=== PATIENT | male | born 2000 | race Caucasian/White ===

== ENCOUNTER 2023-05-22 12:59 | Emergency (ER) | payer MEDICARE ==
[~2023-05-22] VITALS: Ht 170.1 cm; Wt 59.0 kg
[2023-05-22] MEDS ORDERED: BUPROPION XL300 MG PO (13:11)
[2023-05-22] MEDS ORDERED: ATOMOXETINE HCL60 MG PO (13:11)
[2023-05-22] MEDS ORDERED: CYPROHEPTADINE H4 M1 PO (13:12)
[2023-05-22 13:30] LABS: BASO # 0.1 10*3/uL (0.0-0.1); BASO % 0.6 % (0.0-1.0); EOS # 0.2 10*3/uL (0.0-0.4); EOS % 1.9 % (1.0-4.0); LYMPH # 2.4 10*3/uL (1.3-4.4); LYMPH % 28.1 % (27.0-41.0); MEAN CELL VOLUME 88.2 fl (80.0-94.0); MEAN CORPUSCULAR HGB 29.6 pg (27.0-31.0); MEAN CORPUSCULAR HGB CONC 33.6 g/dl (33.0-37.0); MEAN PLATELET VOLUME 8.2 fl (9.6-12.3); MONO # 0.7 10*3/uL (0.1-1.0); MONO % 8.4 % (3.0-9.0); NEUT # 5.2 10*3/uL (2.3-7.9); NEUT % 60.8 % (47.0-73.0); PLATELET COUNT AUTOMATED 345 10*3/uL (130-400); RED BLOOD COUNT 5.33 10*6/uL (4.50-5.90); RED CELL DISTRI WIDTH 12.4 % (0-14.5); WHITE BLOOD COUNT 8.6 10*3/uL (4.8-10.8)
[2023-05-22 13:47] LABS: ALKALINE PHOSPHATASE 54 U/L (46-116); BUN 6 mg/dl (9-23); CHLORIDE 103 mmol/L (98-107); ETHYL ALCOHOL < 3.0 mg/dl (<3); POTASSIUM 4.2 mmol/L (3.4-5.1); SGPT/ALT 68 U/L (5-49)
[2023-05-22] MEDS ORDERED: CYMBALTA60 MG PO (13:48)
[2023-05-22] MEDS ORDERED: PRAZOSIN HCL2 MG PO (13:48)
[2023-05-22] MEDS ORDERED: OLANZAPINE10 MG PO (13:49)
[2023-05-22] MEDS ORDERED: DULCOLAX STOOL100 M1 PO (13:50)
[2023-05-22 14:17] LABS: BILIRUBIN Negative (Negative); BLOOD Negative (Negative); CLARITY Clear (Clear); COLOR Yellow (Yellow); GLUCOSE Negative (Negative); KETONE Negative (Negative); LEUKO ESTERASE Negative (Negative); NITRITE Negative (Negative); PH 7.5 (4.5-8.0); SPECIFIC GRAVITY <= 1.005 (1.001-1.030); UROBILINOGEN 0.2 E.U./dl (0.0-1.0)
[2023-05-22 14:24] LABS: URINE AMPHETAMINES Negative (1000ng/ml); URINE BARBITURATES Negative (200ng/ml); URINE BENZODIAZEPINES Negative (200ng/ml); URINE CANNABINOIDS (THC) Negative (50ng/ml); URINE COCAINE Negative (300ng/ml); URINE METHADONE Negative (300ng/ml); URINE OPIATES Negative (300ng/ml); URINE PHENCYCLIDINE Negative (25ng/ml)
[2023-05-22 14:36] LABS: WBC 0-2 wbc/hpf (0-5)
== END 2023-05-22 14:49 | disposition home or self-care (01) ==
LOC: ED 12:59
PROVIDERS: Physician Assistant Medical
DX: F43.23 Adjustment disorder with mixed anxiety and depressed mood (principal); F32.A Depression, unspecified; F41.9 Anxiety disorder, unspecified; Z79.899 Other long term (current) drug therapy

== ENCOUNTER 2023-08-04 13:08 | Emergency (ER) | payer MEDICARE ==
[~2023-08-04] VITALS: Ht 167.6 cm; Wt 59.0 kg
[~2023-08-04 13:08] MED LIST: ATOMOXETINE HCL60 MG PO; BUPROPION XL300 MG PO; CYMBALTA60 MG PO; CYPROHEPTADINE H4 M1 PO; DULCOLAX STOOL100 M1 PO; OLANZAPINE10 MG PO; PRAZOSIN HCL2 MG PO
[2023-08-04] MEDS ORDERED: Lidocaine Hydrochloride 15 ML UDC PO STA (13:22)
[2023-08-04] MEDS ORDERED: BENZOCAINE 20% 11.9 GM GEL T STA (13:22)
[2023-08-04] MEDS ORDERED: PENICILLIN VK500 MG PO (13:25)
[2023-08-04] MEDS ORDERED: Acetaminophen/Hydrocodone 5 MG/325 MG TABLET PO ONE (13:25)
[2023-08-04] MEDS ORDERED: Ketorolac Tromethamine 60 MG/2 ML VIAL IM ONE (13:25)
[2023-08-04] MEDS ORDERED: NAPROSYN500 MG PO (13:25)
[2023-08-04] MEDS ORDERED: PENICILLIN V POTASSIUM 500 MG TAB PO ONE (13:25)
[2023-08-04] MEDS ORDERED: MINIPRESS2 M1 PO (13:46)
== END 2023-08-04 13:34 | disposition home or self-care (01) ==
LOC: ED 13:08
DX: K04.7 Periapical abscess without sinus (principal)

== ENCOUNTER 2023-10-11 16:13 | Emergency (ER) | payer MEDICARE ==
[~2023-10-11] VITALS: Wt 59.0 kg
[~2023-10-11 16:13] MED LIST changes: +MINIPRESS2 M1 PO; +NAPROSYN500 MG PO; +PENICILLIN VK500 MG PO
== END 2023-10-11 16:45 | disposition home or self-care (01) ==
LOC: ED 16:13
DX: S93.402A Sprain of unspecified ligament of left ankle, initial encounter (principal); Z79.899 Other long term (current) drug therapy; X50.3XXA Overexertion from repetitive movements, initial encounter; Y93.01 Activity, walking, marching and hiking; Y92.89 Other specified places as the place of occurrence of the external cause; Y99.8 Other external cause status

== ENCOUNTER 2024-04-09 13:53 | Emergency (ER) | payer MEDICARE ==
[~2024-04-09] VITALS: Ht 170.1 cm; Wt 59.0 kg
[2024-04-09] MEDS ORDERED: BUPROPION HYDR150 M3 PO (14:04)
[2024-04-09] MEDS ORDERED: OLANZAPINE20 M2 PO (14:05)
[2024-04-09] MEDS ORDERED: OLANZAPINE5 MG PO (14:05)
[2024-04-09] MEDS ORDERED: MINIPRESS5 M1 PO (14:06)
[2024-04-09 15:06] LABS: BASO % 0.4 % (0.0-1.0); EOS # 0.1 10*3/uL (0.0-0.4); EOS % 0.6 % (1.0-4.0); HEMATOCRIT 45.2 % (42.0-52.0); MEAN CORPUSCULAR HGB 30.5 pg (27.0-31.0); MEAN CORPUSCULAR HGB CONC 34.3 g/dl (33.0-37.0); MEAN PLATELET VOLUME 8.4 fl (9.6-12.3); MONO # 0.5 10*3/uL (0.1-1.0); MONO % 6.4 % (3.0-9.0); NEUT # 6.4 10*3/uL (2.3-7.9); NEUT % 76.2 % (47.0-73.0); PLATELET COUNT AUTOMATED 340 10*3/uL (130-400); RED BLOOD COUNT 5.08 10*6/uL (4.50-5.90); RED CELL DISTRI WIDTH 12.4 % (0-14.5); WHITE BLOOD COUNT 8.4 10*3/uL (4.8-10.8)
[2024-04-09 15:24] LABS: ALKALINE PHOSPHATASE 55 U/L (46-116); BUN 7 mg/dl (9-23); CHLORIDE 101 mmol/L (98-107); LIPASE 29 U/L (12-53); POTASSIUM 3.9 mmol/L (3.4-5.1); SGPT/ALT 20 U/L (5-49); TOTAL PROTEIN 7.3 gm/dL (6.0-8.0)
[2024-04-09] MEDS ORDERED: MAGNESIUM CITRATE 296 ML BOT PO ONE (18:00)
== END 2024-04-09 18:04 | disposition home or self-care (01) ==
LOC: ED 13:53
PROVIDERS: Internal Medicine
DX: K59.00 Constipation, unspecified (principal); R11.2 Nausea with vomiting, unspecified; F32.A Depression, unspecified; F90.9 Attention-deficit hyperactivity disorder, unspecified type; Z98.890 Other specified postprocedural states